=== PATIENT | male | born 1955 | race Caucasian/White ===

== ENCOUNTER 2022-04-14 13:07 | Emergency (ER) | payer BC, SELFPAY ==
[2022-04-14 13:19] VITALS: BP 197/91; PULSE 108; RESP 20; TEMP 36.8; O2SAT 97
--- NOTE | 2022-04-14 13:51 | ED.URI ---
HPI - URI/Sore Throat General Chief Complaint: Upper Respiratory Infection Stated Complaint: Sinus/Dental Pain Time Seen by Provider: 04/14/22 13:46 Source: patient Mode of arrival: ambulatory Limitations: no limitations History of Present Illness HPI Narrative: Patient presents today with a 1 month history left temporal headache, sinus congestion and pressure, postnasal drip, yellow nasal drainage. He currently rates his pain 4/10, which is helped with ibuprofen. He has also been taking Sudafed and occasional using Flonase. Related Data Home Medications Medication Instructions Recorded Confirmed amlodipine 5 mg tablet mg 04/14/22 celecoxib 100 mg capsule mg 04/14/22 hydrochlorothiazide 25 mg tablet mg 04/14/22 losartan 100 mg tablet mg 04/14/22 Allergies Allergy/AdvReac Type Severity Reaction Status Date / Time No Known Allergies Allergy Mild Verified 04/14/22 13:19 Review of Systems Review of Systems: CONSTITUTIONAL: Denies body aches, fever, chills, or sweats. EYES: Denies visual changes, redness, or discharge. ENT: Denies rhinorrhea, sore throat, or otalgia.+ congestion, postnasal drip, sinus pressure CARDIOVASCULAR: Denies chest pain, palpitations, or edema. RESPIRATORY: Denies cough or dyspnea. GASTROINTESTINAL: Denies abdominal pain, nausea, vomiting, or diarrhea. GENITOURINARY: Denies dysuria or hematuria. SKIN: Denies rash, itching, or wounds. MUSCULOSKELETAL: Denies back pain, joint pain, or myalgia. NEUROLOGIC: Denies numbness, tingling, or weakness.+ headache PSYCH: Denies depression or anxiety. [facility] Past Medical History Medical History Hypertension Obesity Prediabetes Family History Family History Father Diabetes mellitus Mother Diabetes mellitus Social History Social History Smoking status: Never smoker Alcohol intake: never Substance use: never Comments At time of signature, I have reviewed and agree with nursing past medical, surgical, social and family history unless otherwise noted. Please see nursing chart for further information. There is no relevant family history pertinent to the presenting complaint Exam Narrative: GENERAL: Well-appearing, well-nourished, and in no acute distress. HEAD: Normocephalic, atraumatic. EYES: EOMI. No redness or drainage. Conjunctivae normal. ENT: Mucous membranes pink and moist. Nares congested. No rhinorrhea. TMs normal bilaterally. Throat normal. Uvula midline. Left frontal and maxillary sinus tenderness. NECK: Normal AROM. Supple. No lymphadenopathy. CHEST: No respiratory distress. Clear to auscultation. HEART: Regular rate and rhythm. No murmur appreciated. Normal peripheral pulses. EXTREMITIES: Normal range of motion. No edema. SKIN: Warm, dry, no rash. Capillary refill normal. Normal skin turgor. NEURO: No focal deficits. Alert and oriented x3. Gait steady. PSYCH: Normal affect. No signs of depression or anxiety. Course Course Level of Care: Express Care Visit Vital Signs Vital signs: Vital Signs Temperature 98.3 F 04/14/22 13:19 Pulse Rate 108 H 04/14/22 13:19 Respiratory Rate 20 04/14/22 13:19 Blood Pressure 197/91 H 04/14/22 13:19 Pulse Oximetry 97 04/14/22 13:19 Oxygen Delivery Room Air 04/14/22 13:19 Temperature 98.3 F 04/14/22 13:19 Pulse Rate 108 H 04/14/22 13:19 Respiratory Rate 20 04/14/22 13:19 Blood Pressure 197/91 H 04/14/22 13:19 Pulse Oximetry 97 04/14/22 13:19 Oxygen Delivery Room Air 04/14/22 13:19 Reviewed. Pt has been instructed to follow up with his PCP regarding his elevated blood pressure today. MDM - URI/Sore Throat MDM Narrative Medical decision making narrative: Symptoms consistent with bacterial sinus infection. Will treat with Augmentin prescription. Ant
== END 2022-04-14 13:59 | disposition home or self-care (01) ==
PROVIDERS: Emergency Provider Nurse Practitioner; PCP Internal Medicine
DX: J01.90 Acute sinusitis, unspecified (principal); I10 Essential (primary) hypertension; R73.03 Prediabetes; E66.9 Obesity, unspecified; Z68.43 Body mass index [BMI] 50.0-59.9, adult
CPT/HCPCS: 99213; G0463